=== PATIENT | male | born 1985 | race Caucasian/White ===

== ENCOUNTER 2017-10-27 18:17 | Emergency (ER) | payer OTHER ==
[~2017-10-27] VITALS: Ht 182.9 cm; Wt 133.1 kg
[2017-10-27 18:21] VITALS: BP 136/88
[2017-10-27] MEDS ORDERED: IBUPROFEN 200 MG TABLET PO ONE (19:00)
[2017-10-27] MEDS ORDERED: IBUPROFEN 200 MG TABLET ONE (19:19)
== END 2017-10-27 21:19 | disposition home or self-care (01) ==
LOC: ED 19:00
DX: S92.345A Nondisplaced fracture of fourth metatarsal bone, left foot, initial encounter for closed fracture (principal); Z87.891 Personal history of nicotine dependence; W17.89XA Other fall from one level to another, initial encounter; Y93.89 Activity, other specified; Y92.89 Other specified places as the place of occurrence of the external cause; Y99.8 Other external cause status
CPT/HCPCS: 29515; 99284

== ENCOUNTER 2017-10-30 10:17 | Emergency (ER) | payer OTHER ==
[~2017-10-30] VITALS: Ht 180.3 cm; Wt 135.1 kg
[2017-10-30 10:18] VITALS: BP 145/88
== END 2017-10-30 11:22 | disposition home or self-care (01) ==
LOC: ED 11:18
DX: S92.345D Nondisplaced fracture of fourth metatarsal bone, left foot, subsequent encounter for fracture with routine healing (principal); Z87.891 Personal history of nicotine dependence
CPT/HCPCS: 99282; 99283

== ENCOUNTER 2017-11-27 03:30 | Emergency (ER) | payer MEDICAID, OTHER ==
[~2017-11-27] VITALS: Ht 180.3 cm; Wt 128.3 kg
[2017-11-27 03:33] VITALS: BP 119/86
[2017-11-27] MEDS ORDERED: DIAZEPAM 5 MG TABLET PO ONE (04:00)
[2017-11-27] MEDS ORDERED: KETOROLAC 30 MG/1 ML IM ONE (04:00)
[2017-11-27] MEDS ORDERED: DIAZEPAM 5 MG TABLET ONE (04:00)
[2017-11-27] MEDS ORDERED: KETOROLAC 30 MG/1 ML ONE (04:00)
== END 2017-11-27 04:39 | disposition home or self-care (01) ==
LOC: ED 04:33
DX: S39.012A Strain of muscle, fascia and tendon of lower back, initial encounter (principal); Z87.891 Personal history of nicotine dependence; X58.XXXA Exposure to other specified factors, initial encounter; Y93.89 Activity, other specified; Y92.89 Other specified places as the place of occurrence of the external cause; Y99.8 Other external cause status
CPT/HCPCS: 96372; 99283; J1885

== ENCOUNTER 2017-11-27 16:24 | Emergency (ER) | payer MEDICAID ==
[~2017-11-27] VITALS: Ht 180.3 cm; Wt 133.0 kg
[2017-11-27 17:57] VITALS: BP 127/77
== END 2017-11-27 17:59 | disposition home or self-care (01) ==
LOC: ED 17:46
DX: S39.012A Strain of muscle, fascia and tendon of lower back, initial encounter (principal); X58.XXXA Exposure to other specified factors, initial encounter; Y93.89 Activity, other specified; Y92.89 Other specified places as the place of occurrence of the external cause; Y99.8 Other external cause status
CPT/HCPCS: 72110; 99284